=== PATIENT | female | born 1980 | race Two or more races ===

== ENCOUNTER 2016-10-02 17:04 | Emergency (ER) | payer OTHER, BC ==
[2016-10-02 20:37] VITALS: RESP 16
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
--- NOTE | 2016-10-02 21:23 | XR ---
EXAMINATION TYPE: XR lumbar spine 2 or 3V DATE OF EXAM: 10/02/2016 9:07 PM COMPARISON: NONE HISTORY: Low back pain TECHNIQUE: 3 views FINDINGS: The lumbar vertebra have normal spacing and alignment. Posterior elements are intact. Sacro iliac joints are normal. There is no sign of a fracture. IMPRESSION: Normal lumbar spine.
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
[2016-10-02 21:35] VITALS: BP 121/68; PULSE 70; TEMP 98.2
== END 2016-10-02 21:25 | disposition home or self-care (01) ==
LOC: EC 17:04
DX: M54.2 Cervicalgia (principal); M54.5 Low back pain; R51 Headache; W22.11XA Striking against or struck by driver side automobile airbag, initial encounter; V89.2XXA Person injured in unspecified motor-vehicle accident, traffic, initial encounter
CPT/HCPCS: 72050; 72100; 99284

== ENCOUNTER 2016-10-11 08:34 | Day surgery (SDC) | payer BC ==
[2016-10-08 11:03] VITALS: BMI 25.6
--- NOTE | 2016-10-11 08:32 | P.GSHP ---
History of Present Illness H&P Date: 10/11/16 Chief Complaint: Hemorrhoids This a 35-year-old female who has developed hemorrhoids. Patient points of burning and itching and some intermittent bleeding. She presents today for hemorrhoidectomy. - Constitutional Constitutional: Reports as per HPI Past Medical History Past Medical History: No Reported History History of Any Multi-Drug Resistant Organisms: None Reported Past Surgical History: No Surgical Hx Reported Past Anesthesia/Blood Transfusion Reactions: No Reported Reaction Past Psychological History: Depression Smoking Status: Never smoker Past Alcohol Use History: Occasional Past Drug Use History: None Reported - Past Family History Mother Family Medical History: No Reported History Medications and Allergies Home Medications Medication Instructions Recorded Confirmed Type Loratadine [Claritin] 10 mg PO DAILY PRN 10/08/16 10/08/16 History Venlafaxine HCl [Effexor] 75 mg PO DAILY 10/08/16 10/08/16 History Allergies Allergy/AdvReac Type Severity Reaction Status Date / Time clindamycin Allergy Dyspnea Verified 10/08/16 10:56 candice Allergy Dyspnea Verified 10/08/16 10:56 tree nut [Nut] Allergy Itching Verified 10/08/16 10:56 seasonal allergies Allergy Itching Uncoded 10/08/16 10:56 Surgical - Exam - General well developed, no distress - Eyes PERRL - ENT normal pinna - Neck no masses - Respiratory normal expansion - Cardiovascular Rhythm: regular - Abdomen Abdomen: soft - Rectum Hemorrhoids: moderate (Internal and external hemorrhoids) Assessment and Plan Plan: Symptomatic internal and external hemorrhoids. We'll perform hemorrhoidectomy..
[~2016-10-11 08:34] MED LIST: DEXAMETHASONE SOD PHOSPHATE 10 MG/ML 1 ML VIAL IV ONE; HEPARIN SODIUM,PORCINE 5,000 UNIT/ML 1 ML VIAL SQ ONE; HYDROmorphone 1 MG/ML 1 ML SYRINGE IVP PRN; LACTATED RINGERS 1,000 ML IV SCH; LIDOCAINE 1% 20 ML VIAL (10MG/ML) FOR IV START INTRADERMA PRN; MIDAZOLAM 2 MG/2 ML VIAL IV PRN; ONDANSETRON 4 MG/2 ML VIAL IVP ONE; Pre Op ABX Message 1 EACH MISC MISCELLANE ONE; SCOPOLAMINE 1.5MG/72HR PATCH TRANSDERM ONE
[2016-10-11] MEDS ORDERED: BUPIVACAIN-EPI 0.5%-1:200,000 30 ML VIAL SQ ONE ×3 (08:58→09:57)
[2016-10-11] MEDS ORDERED: MIDAZOLAM 2 MG/2 ML VIAL ONE (09:33)
[2016-10-11] MEDS ORDERED: PROPOFOL 10 MG/ML 20 ML VIAL IV ONE (09:33)
[2016-10-11] MEDS ORDERED: LIDOCAINE 1% INJ 10MG/ML (20 ML MDV) ONE (09:33)
[2016-10-11] MEDS ORDERED: GELATIN SPONGE,ABSORB (LARGE) 1 EACH SPONGE TOPICAL ONE (09:59)
--- NOTE | 2016-10-11 10:02 | P.OP ---
Date of Procedure: 10/11/16 Preoperative Diagnosis: Internal Hemorrhoids Postoperative Diagnosis: Internal and external hemorrhoids Procedure(s) Performed: Hemorrhoidectomy Anesthesia: MAC Surgeon: Jamin Garay Estimated Blood Loss (ml): 2 Pathology: other (Internal and external hemorrhoids) Condition: stable Disposition: PACU Description of Procedure: Patient's placed on the endoscopy table in the lateral position. She received IV sedation. She was then placed in the prone jackknife position. Her perineum was prepped and draped usual sterile fashion. Patient had a large hemorrhoidal column in the 6 o'clock position the anus. Using the anal retractor the hemorrhoid column exposed. And then using a pair of Allis clamps the hemorrhoid was grasped. Using the Harmonic scissors the hemorrhoidectomy was performed. External/internal hemorrhoid was excised. The most extreme stasis. The anus was packed with Gelfoam. Patient was sent to recovery room stable condition.
[2016-10-11 10:17] VITALS: TEMP 97.6
[2016-10-11 10:23] VITALS: RESP 16
[2016-10-11 11:27] VITALS: BP 100/63; PULSE 63
== END 2016-10-11 12:55 | disposition home or self-care (01) ==
LOC: OR 08:34
PROVIDERS: ATTEND Surgery
DX: K64.4 Residual hemorrhoidal skin tags (principal); K64.8 Other hemorrhoids; F32.9 Major depressive disorder, single episode, unspecified; Z88.1 Allergy status to other antibiotic agents; Z91.018 Allergy to other foods; Z79.899 Other long term (current) drug therapy
CPT/HCPCS: 46255; 81025; 88304; J2250; J1644; J1100; J2405; J2001; J2704